=== PATIENT | male | born 1985 | race Caucasian/White ===

== ENCOUNTER 2017-05-31 03:49 | Emergency (ER) | payer SELFPAY ==
[~2017-05-31] VITALS: Ht 180.3 cm; Wt 101.6 kg
[2017-05-31 04:52] LABS: HEMATOCRIT 40.7 % (38.0-50.0); HEMOGLOBIN 14.1 G/DL (12.5-16.6); MCH 29.3 PG (29.0-34.0); MCHC 34.6 G/DL (30.0-36.0); MCV 84.4 FL (86-99); PLATELET COUNT 205 K/uL (156-360); RBC DIS.WIDTH-CV 12.4 % (11.8-14.6); RBC DIS.WIDTH-SD 37.3 % (39-53); RED BLOOD COUNT 4.82 M/uL (4.00-5.50); WHITE BLOOD COUNT 6.3 K/uL (4.1-10.2)
[2017-05-31 04:56] LABS: ALBUMIN 4.3 g/dL (3.2-4.8); CHLORIDE 106 mEq/L (99-109); POTASSIUM 3.7 mEq/L (3.7-5.4); SODIUM 138 mEq/L (136-147)
[2017-05-31 04:59] LABS: GLUCOSE 104 mg/dL (70-99); TOTAL PROTEIN 6.6 g/dL (6.4-8.3)
[2017-05-31 05:01] LABS: TOTAL BILIRUBIN 0.8 mg/dL (0.0-1.0)
[2017-05-31 05:02] LABS: ALKALINE PHOSPHATASE 61 IU/L (3-129); CREATININE 1.1 mg/dL (0.6-1.3); GFR ESTIMATE (CALCULATED) > 59 mL/min/ (58.99-99999)
[2017-05-31 05:03] LABS: UREA NITROGEN (BUN) 16 mg/dL (9-23)
[2017-05-31 05:04] LABS: AST (GOT) 21 IU/L (2-34)
[2017-05-31 05:05] LABS: ALT (GPT) 28 IU/L (3-49)
[2017-05-31 05:06] LABS: LIPASE 23 U/L (1.0-51.0)
[2017-05-31 06:18] LABS: APPEARANCE CLEAR ((CLEAR)); BILIRUBIN NEGATIVE; BLOOD NEGATIVE; COLOR YELLOW ((YELLOW)); GLUCOSE (STRIP) NEGATIVE; KETONES NEGATIVE; LEUKOCYTES NEGATIVE; NITRITE NEGATIVE; PROTEIN (STRIP) NEGATIVE; SPECIFIC GRAVITY 1.014 (1.000-1.030)
[2017-05-31] MEDS ORDERED: ZOFRAN4 MG PO (07:44)
[2017-05-31 07:50] VITALS: BP 102/68
== END 2017-05-31 07:52 | disposition home or self-care (01) ==
LOC: EME 03:49
PROVIDERS: Emergency Medicine
DX: K80.20 Calculus of gallbladder without cholecystitis without obstruction (principal)
CPT/HCPCS: 71046; 76705; 80053; 81003; 83605; 83690; 85027; 87040; 99281; 99284; J1885; J2405; J7030